=== PATIENT | female | born 1955 | race Caucasian/White ===

== ENCOUNTER 2017-08-21 17:56 | Emergency (ER) | payer OTHER ==
[~2017-08-21] VITALS: Ht 157.5 cm; Wt 87.0 kg
[~2017-08-21 17:56] MED LIST: DOCU1CAP39 PO; LORA.5 PO; OXYC1SOL5 PO; RAMI10CA PO
[2017-08-21 18:09] VITALS: BP_SYST 212; BP_SYST 221; BP_DIAS 107; BP_DIAS 116; PULSE 87; RESP 16; TEMP 98.3; O2SAT 96
[2017-08-21] MEDS ORDERED: MELO15TA20 PO (18:28)
[2017-08-21] MEDS ORDERED: RAMI10CA PO (18:28)
[2017-08-21] MEDS ORDERED: TRIA.1%T TOPICAL (18:28)
[2017-08-21] MEDS ORDERED: PANT40TA3 PO (18:28)
[2017-08-21] MEDS ORDERED: AZIT500T2 PO (18:28)
--- NOTE | 2017-08-21 18:36 | PD ---
HPI . High blood pressure Chief Complaint: Hypertension Time Seen by Provider: 18:31 Travel History International Travel<30 days: No Contact w/Intl Traveler<30days: No Traveled to known affect area: No History of Present Illness HPI Patient reports she was sent here by the chiropractor for elevated blood pressure. Since they would not do her treatment today because her blood pressure was elevated. She does not have any signs or symptoms such as chest pain, shortness of breath, disorientation, peripheral edema. She does state that she is at the end of treatment for bronchitis/pleurisy. She states that those symptoms are improving. PFSH Past Medical History Arthritis: Yes Asthma: Yes Cancer: No Cardiovascular Problems: Yes (HTN) High Cholesterol: Yes COPD: Yes Diabetes: No Diminished Hearing: No Endocrine: No Genitourinary: Yes (REPEATED UTI'S) Hepatitis: Yes (HEPC) Hiatal Hernia: Yes Hypertension: Yes Immune Disorder: No Neurologic: No Psychiatric: No Reproductive: Yes (HYSTERECTOMY, MOLAR IN PAST) Respiratory: Yes (COPD) Thyroid Disease: No Tetanus Vaccination: < 5 Years Influenza Vaccination: Yes Past Surgical History Abdominal Surgery: Yes (ABD ABCESS) AICD: No Arteriovenous Shunt: No Section: Yes Gynecologic Surgery: Yes (C SECTION, D&C 2011, HYSTERECTOMY 05/30/16) Hysterectomy: Yes Insulin Pump: No Joint Replacement: No Pacemaker: No Other Surgery: Yes Social History Alcohol Use: Yes (SOCIAL) Tobacco Use: No Substance Use: No Allergies-Medications (Allergen,Severity, Reaction): Coded Allergies: Sulfa (Sulfonamide Antibiotics) (Unverified Allergy, Severe, 08/21/17) adhesive (Unverified Allergy, Severe, 08/21/17) latex (Unverified Allergy, Severe, rash, 08/21/17) beeswax (Verified Allergy, Intermediate, RASH, 08/21/17) clobetasol (Verified Allergy, Intermediate, RASH, 08/21/17) lidocaine (Verified Allergy, Intermediate, RASH, 08/21/17) morphine (Unverified Allergy, Mild, vomiting, 08/21/17) Reported Meds & Prescriptions Reported Meds & Active Scripts Active Reported Azithromycin 500 Mg Tab 500 Mg PO DAILY Triamcinolone Topical (Triamcinolone Acetonide) 0.1% Cream 1 Applic TOPICAL BID Pantoprazole (Pantoprazole Sodium) 40 Mg Tab 40 Mg PO DAILY Meloxicam 15 Mg Tab 15 Mg PO DAILY Ramipril 10 Mg Cap 10 Mg PO DAILY Review of Systems Except as stated in HPI: all other systems reviewed are Neg Cardiovascular: No: Chest Pain or Discomfort Respiratory: No: Shortness of Breath Musculoskeletal: No: Edema Neurologic: No: Change in Mentation Physical Exam Narrative GENERAL: Awake and alert and in no acute distress. SKIN: Warm and dry. HEAD: Normocephalic/atraumatic. EYES: Pupils are equal. Extraocular movements are intact. NECK: Normal range of motion. CARDIOVASCULAR: Regular rate and rhythm. Heart sounds are normal. RESPIRATORY: Nonlabored respirations. Lungs are clear with full air movement throughout. MUSCULOSKELETAL: Atraumatic. No peripheral edema. NEUROLOGICAL: A note 3. No cranial nerve deficits. Moving all 4 extremities equally PSYCHIATRIC: Appropriate mood and affect. Data Data Last Documented VS Vital Signs Date Time Temp Pulse Resp B/P (MAP) Pulse Ox O2 Delivery O2 Flow Rate FiO2 08/21/17 18:09 98.3 87 16 212/116 (148) 96 221/107 (145) MDM Medical Decision Making Medical Screen Exam Complete: Yes Emergency Medical Condition: Yes Differential Diagnosis My differential diagnosis of high blood pressure includes but is not limited to "white coat syndrome," anxiety, essential hypertension, hypertensive emergency. Narrative Course This patient presents to us with elevated blood pressure but no signs or symptoms of hypertensive emergency. She will be discharged home. Diagnosis Primary Impression: High blood pressure Qualified Codes: I10 - Essential (primary) hypertension Patient Instructions: Chronic Hypertension (DC), General Instructions Disposition: 01 DISCHARGE HOME Condition: Stable Yeimy Santizo MD Aug 21, 2017 18:36
[2017-08-21 18:40] VITALS: BP 232/123; PULSE 82; RESP 16; O2SAT 98
[2017-08-21 19:20] VITALS: BP 220/124; PULSE 84; RESP 16; O2SAT 97
== END 2017-08-21 19:41 | disposition home or self-care (01) ==
LOC: PHED 17:56
DX: I10 Essential (primary) hypertension (principal)
CPT/HCPCS: 99281